=== PATIENT | male | born 1970 | race Caucasian/White ===

== ENCOUNTER 2023-02-05 11:43 | Emergency (ER) | payer SELFPAY ==
--- NOTE | 2023-02-05 11:49 | ED.SKABFB ---
HPI - Skin/Abscess/Foreign Bdy General Chief complaint: Skin/Abscess/Foreign Body Stated complaint: rash on buttocks Time Seen by Provider: 02/05/23 12:15 Source: patient and RN notes reviewed Mode of arrival: ambulatory Limitations: no limitations History of Present Illness HPI narrative: 53-year-old male presents concern for rash to his buttocks. He reports the rash is been there for about a month. He has been using an antifungal cream. He reports the rash became less red and some bumps went away but is seems to have gotten larger. He reports it is still itchy. complaint: rash Related Data Home Medications Medication Instructions Recorded Confirmed aspirin 81 mg chewable tablet 81 mg PO DAILY 02/05/23 02/05/23 atorvastatin 40 mg tablet 40 mg PO DAILY 02/05/23 02/05/23 cyclobenzaprine 10 mg tablet 10 mg PO DAILY 02/05/23 02/05/23 duloxetine 30 mg capsule,delayed 30 mg PO DAILY 02/05/23 02/05/23 release duloxetine 60 mg capsule,delayed 60 mg PO DAILY 02/05/23 02/05/23 release hydroxyzine HCl 25 mg tablet 25 mg PO DAILY 02/05/23 02/05/23 losartan 100 mg tablet 100 mg PO DAILY 02/05/23 02/05/23 meloxicam 15 mg tablet 15 mg PO DAILY 02/05/23 02/05/23 methylphenidate HCl 36 mg 36 mg PO DAILY 02/05/23 02/05/23 tablet,extended release 24 hr ([facility]) pregabalin 75 mg capsule 75 mg PO DAILY 02/05/23 02/05/23 Allergies Allergy/AdvReac Type Severity Reaction Status Date / Time [facility] Allergy Intermediate Hallucinati Verified 02/05/23 12:27 ng morphine Allergy Intermediate Vomiting Verified 02/05/23 12:26 Review of Systems Review of Systems: CONSTITUTIONAL: Denies malaise, chills, sweats, or fever. EYES: Denies redness, or discharge. ENT: Denies rhinorrhea, congestion, swollen lips, swollen tongue CARDIOVASCULAR: Denies chest pain, palpitations, or edema. RESPIRATORY: Denies cough or dyspnea. GASTROINTESTINAL: Denies abdominal pain, nausea, vomiting SKIN: Reports itchy rash on his buttocks MUSCULOSKELETAL: Denies joint pain or myalgia. NEUROLOGIC: Denies headache. All systems reviewed & are unremarkable except as noted in HPI and below PMFSH Comments At time of signature, agree with nursing past medical, surgical, social and family history. There is no relevant family history pertinent to the presenting complaint Exam Narrative: GENERAL: Well-appearing, well-nourished, and in no acute distress. HEAD: Normocephalic, atraumatic. EYES: PERRLA, conjunctivae clear, and EOMI. ENT: Mucous membranes moist. Oropharynx without edema, erythema or lesions. NECK: Supple. No lymphadenopathy CHEST: Clear to auscultation. No respiratory distress. HEART: Regular rate and rhythm. SKIN: Warm, dry. Large patch of scaly skin noted on bilateral buttocks consistent with tinea, not much erythema noted NEURO: Alert and oriented x3. PSYCH: Normal mood and affect Course Course Emergency Course: Patient is aware of diagnosis, understands and agrees to treatment plan. Anticipatory guidance given. Patient agrees to follow-up as directed and is aware of reasons to seek care at the emergency department. Portions of this record may have been created with voice recognition software Level of Care: Express Care Visit Vital Signs Vital signs: Reviewed. MDM - Skin/Abscess/Foreign Bdy MDM Narrative Medical decision making narrative: Does not appear at this time to be erythema multiforme, bullous, SJS, TEN; no evidence at this time to suggest RMSF, endocarditis or Lyme disease; patient looks well, nontoxic and is tolerating oral intake; no neurologic signs or symptoms; no headache, photophobia or neck pain; afebrile; appropriate for initial outpatient treatment; discussed the importance of follow-up, patient agrees; question, viral exanthema, contact dermatitis, allergic dermatitis, eczema, urticaria, tinea. No soft palate or uvula edema, no tongue, lip edema or other mucosal involvement, no respirat
[2023-02-05 12:04] VITALS: BP 152/75; PULSE 64; RESP 16; TEMP 36.4; O2SAT 99
== END 2023-02-05 12:32 | disposition home or self-care (01) ==
PROVIDERS: Emergency Provider Nurse Practitioner
DX: B35.4 Tinea corporis (principal); E78.00 Pure hypercholesterolemia, unspecified; I10 Essential (primary) hypertension; F32.A Depression, unspecified
CPT/HCPCS: 99203; G0463